=== PATIENT | female | born 1960 | race American Indian/Alaskan Native ===

== ENCOUNTER 2019-11-04 06:11 | Emergency (ER) | payer OTHER ==
--- NOTE | 2019-11-04 06:43 | XRay Report ---
LEFT WRIST 4 VIEWS INDICATION / CLINICAL INFORMATION: Left wrist pain and swelling after fall. COMPARISON: None available. FINDINGS: BONES and JOINT(S): No acute fracture or subluxation. No significant arthritis. SOFT TISSUES: No significant abnormality. ADDITIONAL FINDINGS: None. IMPRESSION: 1. No acute findings. Signer Name: Mazin Nascimento MD Signed: 11/04/2019 6:38 AM Workstation Name: [employer]
--- NOTE | 2019-11-04 08:09 | Emergency Department Report ---
Upper Extremity - HPI Chief Complaint: Extremity Injury, Upper Stated Complaint: LT HAND INJURY FALL Time Seen by Provider: 11/04/19 07:54 Upper Extremity: Left Wrist, Left Hand Occurred When: 1 Day Mechanism: Fall Severity: moderate Symptoms: Yes Pain with Movement, Yes Limited Range of Movement, Yes Swelling (mild), No Deformity, No Numbness, No Weakness, No Bruising/Ecchymosis, No Laceration or Abrasion Other History: This is a 59-year-old female presents the ED complaint of left wrist pain and minimal swelling status post fall while at work yesterday evening. Patient states she slipped and fell trying to catch her fall and fell on her left hand. Patient states she has had pain since yesterday. Patient st ates that swelling began slowly last night. Patient states that she has been applying cold compressions to reduce swelling which has gone down. Patient states pain is intermittent throbbing aching localized to her left wrist region. She is able to flex and extend her hand and make a fist without any problems. ED Review of Systems ROS: Stated complaint: LT HAND INJURY FALL Other details as noted in HPI Comment: All other systems reviewed and negative ED Past Medical Hx - Past Medical History Previous Medical History?: Yes Hx Hypertension: Yes - Surgical History Past Surgical History?: No - Social History Smoking Status: Never Smoker Substance Use Type: Alcohol - Medications Home Medications: Home Medications Medication Instructions Recorded Confirmed Last Taken Type Cyclobenzaprine [Flexeril] 10 mg PO QHS PRN #20 tablet 11/04/19 Unknown Rx Ibuprofen [Motrin 800 MG tab] 800 mg PO Q8HR PRN #30 tablet 11/04/19 Unknown Rx Upper Extremity Exam - Exam General: Vital signs noted. No distress. Alert and acting appropriately. Head and Torso: No HEENT Abnormality, No Neck Tenderness, No Chest/Lungs Abnormality, No Abdominal Tenderness, No Back Tenderness Shoulder Exam: Yes Normal Range of Motion in Shoulder, No Shoulder Tenderness, No Clavicle Tenderness, No Shoulder Deformity, No AC Joint Tenderness Arm Exam: No Arm/Humerus Tenderness, No Arm Deformity Elbow: No Elbow Tenderness, No Normal Range of Motion in Elbow, No Elbow Deformity Forearm: No Forearm Tenderness, No Forearm Deformity, No Pain with Pronation, No Pain with Supination Wrist: Yes Wrist Tenderness, Yes Normal ROM in Wrist, No Wrist Deformity, No Snuffbox Tenderness, No Pain with Axial Thumb Compression Hand: Yes Normal ROM in Digit(s), No Hand Tenderness, No Hand Deformity, No Digit Tenderness, No Digit(s) Deformity, No Tendon Dysfunction CMS Exam: No Broken Skin, No Normal Distal Pulses, No Normal Capillary Refill, No Normal Distal Sensation ED Medical Decision Making - Radiology Data Radiology results: report reviewed, image reviewed FINDINGS: BONES and JOINT(S): No acute fracture or subluxation. No significant arthritis. SOFT TISSUES: No significant abnormality. ADDITIONAL FINDINGS: None. IMPRESSION: 1. No acute findings. Signer Name: Mazin Nascimento MD Signed: 11/04/2019 6:38 AM Workstation Name: [id number] Transcribed By: [place] Dictated By: Mazin Nascimento MD Electronically Authenticated By: Mazin Nascimento MD Signed Date/Time: 11/04/19 0638 - Medical Decision Making 59-year-old female presents to ED with wrist sprain/pain status post fall at work last night ED course: Patient received pain medication in ED. X-ray was completed, x-ray shows no acute fracture dislocation. Patient placed in a wrist immobilizer splint prior to discharge. Vital signs are normal patient is in no acute distress Discussed with patient follow-up with primary care physician. Discussed the patient and take medications as prescribed. Patient has no neurological deficit. Patient is alert and oriented 3 and understands all instructions given. Discussed drowsiness effect of Flexeril makes her drowsy and not to operate machinery while taking flexeril Critical care attestation.: If time is entered above; I have spent that time in minutes in the direct care of this critically ill patient, excluding procedure time. ED Disposition Clinical Impression: Left wrist injury, Left wrist sprain Disposition: DC-01 TO HOME OR SELFCARE Is pt being admited?: No Does the pt Need Aspirin: No Condition: Stable Instructions: Wrist Injury (ED), Wrist Sprain (ED) Additional Instructions: Make sure to follow up with the primary care physician as discussed. Take all your medications as you've been prescribed. If you have any worsening symptoms or develop new symptoms please return to ED immediately. Prescriptions: Cyclobenzaprine [Flexeril] 10 mg PO QHS PRN #20 tablet PRN Reason: Muscle Spasm Ibuprofen [Motrin 800 MG tab] 800 mg PO Q8HR PRN #30 tablet PRN Reason: Pain Referrals: ORESTES SAUCEDA MD [Staff Physician] - 3-5 Days [facility] [Provider Group] - 3-5 Days Forms: Accompanied Note, Work/School Release Form(ED) Time of Disposition: 08:29
[2019-11-04] MEDS ORDERED: ACETAMINOPEN W/CODEINE 120-12MG ORAL LIQD 5 ML PO ONE (08:10)
[2019-11-04] MEDS ORDERED: predniSONE 20 MG TAB PO ONE (08:10)
[2019-11-04 08:37] VITALS: BP 157/72
== END 2019-11-04 09:13 | disposition home or self-care (01) ==
LOC: ED 06:11
DX: S63.502A Unspecified sprain of left wrist, initial encounter (principal); I10 Essential (primary) hypertension; Z79.899 Other long term (current) drug therapy; W18.39XA Other fall on same level, initial encounter; Y93.89 Activity, other specified; Y92.89 Other specified places as the place of occurrence of the external cause; Y99.0 Civilian activity done for income or pay
CPT/HCPCS: 29125; 73110; 99284; J7512